=== PATIENT | male | born 1945 | race Caucasian/White ===

== ENCOUNTER 2017-05-27 15:45 | Inpatient (IN) | payer OTHER ==
--- NOTE | ~2017-05-27 | DS ---
Unit #: [id number] #: [id number] Patient: ORLANDO BELCHER [id number] [address] [address] [id number] I MR#: [id number] NAME: ORLANDO BELCHER ROOM: 331 Age: 71 Sex: M Admission Date: 05/27/2017 : 1945 Discharge Date: 05/29/2017 Attending Physician: Gm Cramer M.D. Primary Care Physician: Dustin Patten M.D. DISCHARGE SUMMARY DISCHARGE DIAGNOSES 1. Acute hypoxemic, hypercapnic respiratory failure, resolved. 2. Chronic obstructive pulmonary disease with exacerbation. 3. Possible underlying asthma. 4. Computed tomographic scan with areas consistent with atelectasis, cannot rule out mild pneumonia but doubt. 5. Obstructive sleep apnea, on continuous positive airway pressure. 6. Suspect seasonal allergies, as well as allergies to cats and dogs. 7. Hypertension. 8. Depression. 9. Hyperlipidemia. 10. Diabetes. DISCHARGE MEDICATIONS 1. Zithromax 500 mg a day for 4 days. 2. Ceftin 500 mg b.i.d. for 4 days. 3. Prednisone 40 mg a day for 4 days, then 20 mg a day for 4 days, then off. 4. Albuterol, either as MDI or nebulizer, q.i.d. p.r.n. 5. Symbicort 160 mcg 2 puffs b.i.d. with spacer. 6. Spiriva 1 capsule inhaled daily. 7. Flomax 0.4 mg at night. 8. Losartan/Hydrochlorothiazide 1 tablet a day. 9. Flonase 1 sniff b.i.d. 10. Prozac 20 mg a day. 11. Claritin 10 mg a day. Consider holding his Claritin because of potential mucus plugging. 12. Norvasc 5 mg a day. 13. Lopressor 25 mg b.i.d. 14. Lovastatin 40 mg a day. 15. Cozaar 100 mg a day. 16. Singulair 10 mg at bedtime. 17. Nexium 40 mg a day. 18. Potassium 10 mEq a day. FOLLOW-UP 1. Follow up with Dr. Dustin Patten for general medical care. 2. Follow up with Dr. Abad's nurse practitioner in 1-2 weeks. 3. Follow up with Dr. Abad in 4-6 weeks; consider allergy testing and/or full PFTs if not recently done. DIET Constant carb diet. Unit #: [id number] #: [id number] Patient: ORLANDO BELCHER ACTIVITY No specific restrictions. Remarkably, his saturations have improved, and he ranges from 92% to 94% on room air even ambulating in his room. DESCRIPTION OF HOSPITALIZATION The patient was admitted through the emergency room with fairly abrupt onset of shortness of breath. He had hypercapnic hypoxemic respiratory failure with arterial blood gases with pH of 7.32, pCO2 of 52, pO2 of 69, and that was on 100%. He did receive noninvasive mask ventilation. The following day he actually was much better, still required 6 liters nasal cannula Oxymizer oxygen. His exam was fairly unremarkable. Chest x-ray was fairly unremarkable, and he underwent evaluation for pulmonary embolism. His CT angiogram was negative for PE. He had some bandlike atelectasis, possibly secondary to mucus plugging, right lower lobe. Could not rule out some degree of parenchymal infection. He responded quite rapidly to antibiotics, steroids. He actually did not wear his oxygen last night, and he did wear his CPAP. He has been ambulating around his room without difficulty off his oxygen all morning long. He is able to perform all activities of daily living and is asking to go home. He does, likely, have some allergies. Consider allergy testing as an outpatient. Also, it is unclear when he had his last PFTs. Consider full PFTs once recovered from this episode if not previously performed recently. Of note, his labs were very unremarkable. Renal function was normal, and CBC was entirely normal. Overall, he was discharged in markedly improved condition with followup as described above. Dictated by... Gm Cramer M.D. COREY/amber TD: 05/31/2017 08:04 JOB #: [id number] DISCHARGE SUMMARY Page 1 of 1 X Gm Cramer MD DISCHARGE SUMMARY
--- NOTE | ~2017-05-27 | HP ---
Unit #: [id number] #: [id number] Patient: ORLANDO BELCHER [id number] [address] [place], [place] [address] [id number] I MR#: [id number] NAME: ORLANDO BELCHER ROOM: [facility] Age: 71 Sex: M Admission Date: 05/27/2017 : 1945 Attending Physician: Gm Cramer M.D. Primary Care Physician: Dustin Patten M.D. HISTORY AND PHYSICAL CHIEF COMPLAINT Shortness of breath. HISTORY OF PRESENT ILLNESS The patient is a 71-year-old gentleman who carries the diagnosis of asthma/chronic obstructive pulmonary disease and sleep apnea. He was in his usual state of health until about 11 or 12 o'clock yesterday morning. He had increasing shortness of breath which failed to respond to nebulized bronchodilators or Ventolin inhaler. It progressed and he presented to the emergency room. In the emergency room he was quite short of air and hypoxemic and required mask ventilation. He was admitted to the ICU. Saturations on the emergency room face sheet were 86% on a 100% nonrebreather. He denied chest pain, pleurisy, hemoptysis, wheezing, mucopurulent sputum, chest pain, fever, etc. He does feel better today, but still requires 6 liters of oxygen via Oxymizer nasal cannula. He used his mask ventilation overnight, but currently is stable off BiPAP. PAST MEDICAL HISTORY 1. Asthma/chronic obstructive pulmonary disease. He had fairly severe reduction in his FEV1. According to Dr. Abad's last note, he had significant response to treatment, but I do not have the final PFTs. 2. History of chronic obstructive pulmonary disease on CPAP. 3. History of hypertension. 4. Depression. 5. Hyperlipidemia. 6. Diabetes. SOCIAL HISTORY Never smoker. He lives at home. FAMILY HISTORY No definite familial lung disease. ALLERGIES No known drug allergies. HOME MEDICATIONS 1. Symbicort 2 puffs b.i.d. 2. Spiriva daily. 3. Nebulizer and Ventolin and he states compliance. 4. No oxygen at home. He wears his CPAP nightly without difficulty. 5. Flonase. 6. Potassium. 7. Singulair. Unit #: [id number] #: [id number] Patient: ORLANDO BELCHER 8. Claritin. 9. Cozaar. 10. Paxil. 11. Metoprolol. 12. Losartan. 13. Norvasc. 14. Nexium. 15. Lovastatin. 16. Flomax. REVIEW OF SYSTEMS He had some nasal stuffiness, somewhat more than usual. He had some right arthritic shoulder pain that improved with Tylenol and ultimately Advil. He has taken Advil in the past without difficulty. He may have somewhat increased shortness of breath around cats and dogs at his family's house, he has no cats or dogs at home. He was not overly exposed to those prior to this illness. He had not been around any inhaled irritants. No chest pain, palpitations, abdominal pain, difficulty swallowing, melena, hematochezia, hematuria, dysuria, focal weakness, paresthesias, leg pain, swelling. Further review of systems as above and negative. PHYSICAL EXAMINATION GENERAL: Gentleman who is very comfortable on 6 liters. VITALS: Afebrile, pulse 77, respiratory rate 13-23, unlabored, blood pressure 130/88 currently, Cardene is off. He did require Cardene overnight for a few hours. Height 5'9", 210 pounds. BMI 34. HEENT: Pupils equal, round and reactive to light. Sclerae anicteric. Head atraumatic. Neck supple. No supraclavicular or cervical lymphadenopathy appreciated. CHEST: Remarkably clear lung anne. Generalized decreased breath sounds, but no wheeze, stridor or consolidation. Expiratory phase relatively short. HEART: Regular rate and rhythm. No pathologic murmur, rub or gallop. ABDOMEN: Soft and nontender. No hepatomegaly or rebound. EXTREMITIES: No clubbing, cyanosis or edema. Calves are nontender. SKIN: Warm and dry without rash or diaphoresis. NEUROLOGIC: Grossly intact. No muscle or sensory deficits. DIAGNOSTIC STUDIES IMAGING: Chest x-ray no acute disease. LABORATORY: Arterial blood gas pH 7.34, pCO2 52, pO2 69 on 100% mask ventilation. BUN 17, creatinine 0.9. The remainder of his CMP was normal. BNP was 64, lactic acid low. Cardiac enzymes negative. CBC normal. He did have a mild elevation in his eosinophil percentage at 7.6. Blood cultures performed as emergency room routine and are pending. Rhythm strips are sinus. CARDIOVASCULAR: EKG no definite acute ischemic changes. ASSESSMENT 1. Acute hypercapnic, hypoxemic respiratory failure. At this point etiology is evasive. 2. Chronic obstructive pulmonary disease/asthma. 3. Hypertension with elevated blood pressure. Now improved. 4. Depression. 5. Possible allergy to cats and dogs. 6. Sleep apnea on CPAP. Unit #: [id number] #: [id number] Patient: ORLANDO BELCHER 7. Diabetes. 8. Hyperlipidemia. PLAN ICU admission. Noninvasive mask ventilation, although I think we can go to as needed. I will ask his family to bring in his CPAP and use that at night with sleep. Continue treatment of his airways disease, treatment of his high blood pressure. I will check a CT angiogram to rule out PE as I cannot explain his severe hypoxemia by history or exam. Lovenox will be added for DVT prophylaxis and certainly will be increased if he has PE. I will adjust his antibiotics for bronchitis. Certainly expand coverage if pneumonia is found on CAT scan. Sliding scale insulin will be added to monitor his blood sugars. Dictated by Gm Cramer M.D. COREY/bandar TD: 05/28/2017 09:48 JOB #: [id number] CC: Madison Vogel M.D. HISTORY AND PHYSICAL Page 1 of 1 X Gm Cramer MD X HISTORY AND PHYSICAL
--- NOTE | ~2017-05-27 | CR72 ---
[facility] A Service of [facility] RADIOLOGY TEXT RESULTS PATIENT: ORLANDO BELCHER LOCATION: [place] [address]-03 : [birth year] UNIT #: [id number] AGE: [address]: Gm Cramer MD SEX: M ORDER DR: [id number] [facility] [address]. [place], [place] [address] [id number] I MR#: [id number] Acc #: [id number] NAME: ORLANDO BELCHER : 1945 SEX: M STUDY DATE/TIME: 05/27/2017 16:04 UNIT: [facility] ROOM: [facility] STUDY DESCRIPTION: CR Chest Single View Portable Attending Physician: Gm Cramer M.D. Ordering Physician: Jani Rogel M.D. Primary Care Physician: Dustin Patten M.D. MEDICAL IMAGING REPORT This report is preliminary unless electronic signature is present EXAM Portable chest, 05/27/2017. HISTORY Shortness of breath and respiratory distress today. FINDINGS The cardiac and mediastinal structures are stable compared with 11/07/2016. Lungs are hyperinflated with emphysematous and fibrotic changes characteristic of COPD. No airspace consolidation is seen. There are no pleural effusions. IMPRESSION COPD. No active pulmonary disease. Dictated by... Wilian Mcnulty M.D. THIS IS AN ELECTRONICALLY VERIFIED REPORT Wilian Mcnulty M.D. at 05/28/2017 2:14 PM EVER/corinne TD: 05/28/2017 00:46 JOB #: [id number] MEDICAL IMAGING REPORT Page 1 of 1 COPY
--- NOTE | ~2017-05-27 | EKG ---
PATIENT: ORLANDO BELCHER UNIT #: [id number] Ventricular Rate: 70 BPM Atrial Rate: 70 BPM P-R Interval: 176 ms QRS Duration: 88 ms Q-T Interval: 422 ms QTC Calculation(Bezet): 455 ms P [place]: 71 degrees Calculated R [place]: -31 degrees Calculated T [place]: 55 degrees Diagnosis Line: Normal sinus rhythm Diagnosis Line: Left axis deviation Diagnosis Line: Abnormal ECG Diagnosis Line: When compared with ECG of 07-NOV-2016 01:24, Diagnosis Line: No significant change was found Diagnosis Line: Confirmed by ELI AGUIRRE MD ([id number]) on Diagnosis Line: 05/29/2017 11:05:49 AM INTERPRETING MD: CARLA GOLD
--- NOTE | ~2017-05-27 | CR72 ---
[facility] A Service of [facility] RADIOLOGY TEXT RESULTS PATIENT: ORLANDO BELCHER LOCATION: [address] : [birth year] UNIT #: [id number] AGE: [address]: Gm Cramer MD SEX: M ORDER DR: [id number] [facility] [address] [facility] [place], [place] [address] [id number] I MR#: [id number] Acc #: [id number] NAME: ORLNADO BELCHER : 1945 SEX: M STUDY DATE/TIME: 05/28/2017 5:26 UNIT: [facility] ROOM: [facility] STUDY DESCRIPTION: CR Chest Single View Portable Attending Physician: Gm Cramer M.D. Ordering Physician: Rickey Agrawal M.D. Primary Care Physician: Dustin Patten M.D. MEDICAL IMAGING REPORT This report is preliminary unless electronic signature is present EXAM Frontal chest 05/28/2017 INDICATIONS Asthma exacerbation in the 71-year-old male. Respiratory distress. Symptoms for a day. COPD and hypertension. COMPARISON STUDIES Frontal chest compared with 05/27/2017 FINDINGS Cardiac silhouette is within normal limits. The vascularity is unremarkable. Lung volumes are slightly lower. There is some minimal atelectasis in the lung bases. Underlying COPD. No pneumothorax. IMPRESSION Chronic obstructive pulmonary disease. Low lung volumes with minimal bibasilar atelectasis. Dictated by... Paul Thompson M.D. THIS IS AN ELECTRONICALLY VERIFIED REPORT Paul Thompson M.D. at 05/28/2017 4:12 PM VICTORINA/sukhwinder TD: 05/28/2017 14:15 JOB #: [id number] MEDICAL IMAGING REPORT [facility] A Service [facility] RADIOLOGY TEXT RESULTS PATIENT: ORLANDO BELCHER LOCATION: [address] : [birth year] UNIT #: [id number] AGE: [address]: Gm Cramer MD SEX: M ORDER DR: Page 1 of 1 COPY
--- NOTE | ~2017-05-27 | CT16 ---
[facility] A Service of [facility] RADIOLOGY TEXT RESULTS PATIENT: ORLANDO BELCHER LOCATION: [facility] 331-01 : [birth year] UNIT #: [id number] AGE: [address]: Gm Cramer MD SEX: M ORDER DR: [id number] [facility] [address]. [place], [place] [address] [id number] I MR#: [id number] Acc #: [id number] NAME: ORLANDO BELCHER : 1945 SEX: M STUDY DATE/TIME: 05/28/2017 10:25 UNIT: [facility] ROOM: [facility] STUDY DESCRIPTION: CT Angio Chest for PE Attending Physician: Gm Cramer M.D. Ordering Physician: Gm Cramer M.D. Primary Care Physician: Dustin Patten M.D. MEDICAL IMAGING REPORT This report is preliminary unless electronic signature is present EXAM Chest, CT angiogram with contrast. Date of study 05/28/2017 PROCEDURE Axial contrast-enhanced chest CT angiogram with three-dimensional reformats. Please insert CT dose statement This CT exam was performed with one or more of the following radiation dose reduction techniques: automatic exposure control, adjustment of mA and/or kV according to patient size, and iterative reconstruction. COMPARISON STUDIES Prior chest CT angiogram 06/02/16. CLINICAL HISTORY Short of air and respiratory distress for 24 hours. FINDINGS There is right lower lobe atelectasis or infiltrate with volume loss and lesser left lower lobe atelectasis or infiltrate. There is no central airway obstruction. There is no effusion or pneumothorax. The thoracic aorta is normal in caliber. Bolus timing is adequate. There is no convincing evidence of pulmonary embolism. Limited images of the upper abdomen redemonstrate cholelithiasis but show no acute abnormality. IMPRESSION Right greater than left posterior bibasilar dependent atelectasis or infiltrate with volume loss but no effusion. No other infiltrate is seen. [facility] A Service of [facility] RADIOLOGY TEXT RESULTS PATIENT: ORLANDO BELCHER LOCATION: [facility] 331- : [birth year] UNIT #: [id number] AGE: [address]: Gm Cramer MD SEX: M ORDER DR: Adequate bolus timing and no evidence of pulmonary embolism. Normal thoracic aorta. Dictated by... Hamlet Weldon M.D. THIS IS AN ELECTRONICALLY VERIFIED REPORT Hamlet Weldon M.D. at 05/29/2017 10:54 AM TEV/ea TD: 05/28/2017 17:05 JOB #: [id number] MEDICAL IMAGING REPORT Page 1 of 1 COPY
[~2017-05-27 15:45] MED LIST: ALBUTEROL 0.5ML INH; ALBUTEROL17 GM INH; ALL DAY ALLERGY10 MG PO; ALTOPREV40 MG PO; AMOXICILLIN875 MG PO; ASPIRIN81 M2 PO; COMBIVENT U/D3 M2 INH; COZAAR100 MG PO; FLOMAX0.4 M1 PO; FLONASE 0.05% N16 GM; FLOVENT DI50 MCG/DIS INH; KLOR-CON PO; LEVAQUIN PO; LOSARTAN-HCTZ1 EAC2 PO; MEDROL4 MG PO; METOPROLOL TART25 MG PO; NORVASC PO; PREDNISONE; PREDNISONE10 MG PO; PRILOSEC PO; SARAFEM20 MG PO; SPIRIVA18 MCG INH; SYMBICORT INH; TOLTERODINE TART4 MG PO; ZITHROMAX PO
[2017-05-27 16:07] LABS: ARTERIAL BLD GAS O2 SATURATION 91.4 % (90.0-100.0); ARTERIAL BLOOD GAS CARBOXY HB 0.6 %sat (0.0-9.0); ARTERIAL BLOOD GAS HCO3 28.1 mmol/L; ARTERIAL BLOOD GAS MET HB 0.6 %sat (0.0-2.0); ARTERIAL BLOOD GAS PCO2 51.8 mmHg (35.0-45.0); ARTERIAL BLOOD GAS PO2 69.3 mmHg (80.0-100); ARTERIAL BLOOD GAS pH 7.342 (7.350-7.450)
[2017-05-27 16:08] LABS: ARTERIAL BLOOD GAS ALLEN TEST NORMAL; ARTERIAL BLOOD GAS ART SITE RIGHT RADIAL; ARTERIAL BLOOD GAS DELIVERY BIPAP; ARTERIAL DRAW? YES
[2017-05-27 16:17] LABS: BASOPHIL# 0.1 X10e3 (0-0.3); BASOPHIL% 1.2 % (0-2.5); EOSINOPHIL# 0.5 X10e3 (0-0.7); EOSINOPHIL% 7.6 % (0.0-7.0); HEMATOCRIT 45.3 % (38.0-50.0); LYMPHOCYTE% 29.6 % (17.0-45.0); MEAN CELL VOLUME 93.6 FL (83-96); MEAN CORPUSCULAR HEMOGLOBIN 31.1 PG (28-34); MEAN CORPUSCULAR HGB CONC 33.2 g/dL (30-36); MEAN PLATELET VOLUME 7.4 FL (6.5-11.5); MONOCYTE# 0.5 X10e3 (0-1.0); NEUTROPHIL# 3.8 X10e3 (1.5-7.1); NEUTROPHIL% 54.6 % (40-75); PLATELET COUNT 204 X10e3 (140-420); RED BLOOD COUNT 4.84 X10e (3.90-5.60); RED CELL DISTRIBUTION WIDTH 13.2 % (11.0-15.5); WHITE BLOOD COUNT 6.9 X10e3 (4.0-10.5)
[2017-05-27 16:19] LABS: POC - CKMB <1.0 ng/mL (0.0-7.9); POC - TROPONIN <0.05 ng/mL (<=0.05)
[2017-05-27 16:22] LABS: DIFF IND NO
[2017-05-27 16:38] LABS: ALBUMIN SERUM 4.2 g/dL (3.5-5.0); BILIRUBIN, DIRECT 0.2 mg/dL (0.0-0.2); BILIRUBIN,INDIRECT 1.2 mg/dL (0.0-0.9); BILIRUBIN,TOTAL 1.4 mg/dL (0.2-2.0); CALCIUM SERUM 8.9 mg/dL (8.4-10.2); CREATININE SERUM 0.9 mg/dL (0.6-1.4); GLOM FILT RATE Estimated 85.6 mL/min (>60); POTASSIUM 3.4 mmol/L (3.5-5.1); PROTEIN TOTAL SERUM 7.5 g/dL (6.0-8.3)
[2017-05-27] MEDS ORDERED: ALBUTEROL17 GM INH (22:15)
[2017-05-27] MEDS ORDERED: SPIRIVA18 MCG INH (22:16)
[2017-05-27] MEDS ORDERED: FLONASE ALLERG9.9 ML (22:17)
[2017-05-27] MEDS ORDERED: SYMBICORT INH (22:18)
[2017-05-27] MEDS ORDERED: KCL PO (22:19)
[2017-05-27] MEDS ORDERED: MONTELUKAST SOD10 MG PO (22:20)
[2017-05-27] MEDS ORDERED: ALL DAY ALLERGY10 M3 PO (22:20)
[2017-05-27] MEDS ORDERED: COZAAR100 MG PO (22:21)
[2017-05-27] MEDS ORDERED: SARAFEM20 MG PO (22:21)
[2017-05-27] MEDS ORDERED: LOSARTAN-HCTZ1 EAC2 PO (22:24)
[2017-05-27] MEDS ORDERED: METOPROLOL TAR25 MG PO (22:24)
[2017-05-27] MEDS ORDERED: AMLODIPINE BESYL5 MG PO (22:25)
[2017-05-27] MEDS ORDERED: NEXIUM PO (22:26)
[2017-05-27] MEDS ORDERED: FLOMAX0.4 M1 PO (22:26)
[2017-05-27] MEDS ORDERED: ALTOPREV40 MG PO (22:26)
[2017-05-28 05:11] LABS: HEMATOCRIT 42.2 % (38.0-50.0); HEMOGLOBIN 14.2 gm/dL (13.0-16.0); MEAN CELL VOLUME 93.8 FL (83-96); MEAN CORPUSCULAR HEMOGLOBIN 31.6 PG (28-34); MEAN CORPUSCULAR HGB CONC 33.7 g/dL (30-36); MEAN PLATELET VOLUME 7.4 FL (6.5-11.5); RED BLOOD COUNT 4.5 X10e (3.90-5.60); RED CELL DISTRIBUTION WIDTH 13.3 % (11.0-15.5); WHITE BLOOD COUNT 7.8 X10e3 (4.0-10.5)
[2017-05-28 05:58] LABS: BUN/CREATININE RATIO 18.88; CALCIUM SERUM 8.9 mg/dL (8.4-10.2); CREATININE SERUM 0.9 mg/dL (0.6-1.4); GLOM FILT RATE Estimated 85.6 mL/min (>60); POTASSIUM 4.1 mmol/L (3.5-5.1)
[2017-05-29] MEDS ORDERED: ALBUTEROL MININEB NEB (10:27)
[2017-05-29] MEDS ORDERED: PREDNISONE PO (10:28)
[2017-05-29] MEDS ORDERED: ZITHROMAX500 MG PO (10:29)
[2017-05-29] MEDS ORDERED: CEFTIN PO (10:30)
[2017-05-29] MEDS ORDERED: NEXIUM PO (10:40)
== END 2017-05-29 14:25 | disposition home or self-care (01) | DRG 189 ==
LOC: CED 15:45 → CEDOF 17:05 → CED 17:43 → CICCU2 19:47 → CEDOF 19:47 → C3A PCU 05-28 18:07
PROVIDERS: Emergency Medicine; Internal Medicine
PROC: B32TYZZ Computerized Tomography (CT Scan) of Left Pulmonary Artery using Other Contrast (ICD-10-PCS; principal; 2017-05-28)
PROC: B32SYZZ Computerized Tomography (CT Scan) of Right Pulmonary Artery using Other Contrast (ICD-10-PCS; 2017-05-28)
DX: J96.01 Acute respiratory failure with hypoxia (principal); J44.1 Chronic obstructive pulmonary disease with (acute) exacerbation; E11.9 Type 2 diabetes mellitus without complications; J98.11 Atelectasis; J96.02 Acute respiratory failure with hypercapnia; G47.33 Obstructive sleep apnea (adult) (pediatric); J30.2 Other seasonal allergic rhinitis; I10 Essential (primary) hypertension; F32.9 Major depressive disorder, single episode, unspecified; E78.5 Hyperlipidemia, unspecified; J30.81 Allergic rhinitis due to animal (cat) (dog) hair and dander
CPT/HCPCS: 36415; 36600; 71010; 71275; 80048; 80076; 82553; 82803; 82947; 83605; 83880; 84484; 85025; 85027; 87040; 93005; 94640; 94660; 94664; 94760; 96360; 99291; J0456; J0696; J1815; J1956; J2920; J2930; Q9967